=== PATIENT | female | born 1965 | race African-American/Black ===

== ENCOUNTER 2016-08-06 21:02 | Emergency (ER) | payer SELFPAY ==
--- NOTE | 2016-08-06 21:39 | RAD ---
FOUR VIEWS OF THE LEFT KNEE 08/06/16 COMPARISON: None. HISTORY: Left knee pain that started three to four hours ago. FINDINGS: Four views left knee shows a moderate medial femorotibial joint space narrowing and osteophyte forma tion and mild patellofemoral joint space narrowing and osteophyte formation consistent with osteoart hritis. There is no evidence of fracture or dislocation. No knee effusion is seen. IMPRESSION: Moderate left knee osteoarthritis without acute osseous abnormality. POS: JOSE
[2016-08-06] MEDS ORDERED: traMADol HCl 50 MG TAB ONE (21:45)
== END 2016-08-06 21:50 | disposition home or self-care (01) ==
LOC: BURERS 21:02
DX: M25.562 Pain in left knee (principal); F41.9 Anxiety disorder, unspecified; F32.9 Major depressive disorder, single episode, unspecified

== ENCOUNTER 2016-09-11 20:39 | Emergency (ER) | payer SELFPAY ==
[2016-09-11] MEDS ORDERED: AMOXicillin 250 MG CAP ONE (20:52)
[2016-09-11] MEDS ORDERED: traMADol HCl 50 MG TAB ONE (20:52)
== END 2016-09-11 20:57 | disposition home or self-care (01) ==
LOC: BURERS 20:39
DX: K02.9 Dental caries, unspecified (principal); F41.9 Anxiety disorder, unspecified; F32.9 Major depressive disorder, single episode, unspecified
CPT/HCPCS: 99282

== ENCOUNTER 2016-11-13 17:49 | Emergency (ER) | payer SELFPAY ==
[2016-11-13] MEDS ORDERED: Sulfameth/Trimethoprim DS 800-160mg TAB ONE (17:57)
== END 2016-11-13 18:00 | disposition home or self-care (01) ==
LOC: BURERS 17:49
DX: L02.411 Cutaneous abscess of right axilla (principal); F41.9 Anxiety disorder, unspecified; F32.9 Major depressive disorder, single episode, unspecified
CPT/HCPCS: 99283

== ENCOUNTER 2017-02-15 17:07 | Emergency (ER) | payer SELFPAY ==
[2017-02-15] MEDS ORDERED: Bacitracin Zinc 1 Packet ONE (17:25)
== END 2017-02-15 17:35 | disposition home or self-care (01) ==
LOC: BURERS 17:07
DX: L02.411 Cutaneous abscess of right axilla (principal); F41.9 Anxiety disorder, unspecified; F32.9 Major depressive disorder, single episode, unspecified
CPT/HCPCS: 99283; J7620

== ENCOUNTER 2017-03-25 10:03 | Emergency (ER) | payer SELFPAY | END 2017-03-25 10:21 | disposition home or self-care (01) | LOC: BURERS 10:03 | DX: K04.7 Periapical abscess without sinus (principal); F41.9 Anxiety disorder, unspecified; F32.9 Major depressive disorder, single episode, unspecified | CPT/HCPCS: 99282 ==

== ENCOUNTER 2017-04-18 18:41 | Emergency (ER) | payer SELFPAY ==
[2017-04-18] MEDS ORDERED: traMADol HCl 50 MG TAB ONE (19:04)
[2017-04-18] MEDS ORDERED: AMOXicillin 250 MG CAP ONE (19:05)
== END 2017-04-18 19:15 | disposition home or self-care (01) ==
LOC: BURERS 18:41
DX: K02.9 Dental caries, unspecified (principal); J06.9 Acute upper respiratory infection, unspecified; F41.9 Anxiety disorder, unspecified; F32.9 Major depressive disorder, single episode, unspecified
CPT/HCPCS: 99282

== ENCOUNTER 2017-08-12 08:40 | Emergency (ER) | payer SELFPAY ==
[2017-08-12] MEDS ORDERED: Ibuprofen 200 MG TAB ONE (09:23)
--- NOTE | 2017-08-12 10:34 | RAD ---
RIGHT ANKLE 3 VIEWS: Date: 08/12/17 PROVIDED CLINICAL HISTORY: Right ankle pain status post injury. FINDINGS: No evidence for fracture or other acute osseous abnormality. If there is persistent clinical concern, conservative management and follow-up imaging are advised. IMPRESSION: As above. POS: JOSE
== END 2017-08-12 09:33 | disposition home or self-care (01) ==
LOC: BURERS 08:40
DX: S93.431A Sprain of tibiofibular ligament of right ankle, initial encounter (principal); W17.89XA Other fall from one level to another, initial encounter
CPT/HCPCS: 29515

== ENCOUNTER 2017-11-08 17:05 | Emergency (ER) | payer SELFPAY ==
[2017-11-08] MEDS ORDERED: Ibuprofen 200 MG TAB ONE ×2 (17:15→17:17)
== END 2017-11-08 17:20 | disposition home or self-care (01) ==
LOC: BURERS 17:05
DX: M17.11 Unilateral primary osteoarthritis, right knee (principal)
CPT/HCPCS: 99283

== ENCOUNTER 2018-02-01 10:46 | Emergency (ER) | payer SELFPAY | END 2018-02-01 11:07 | disposition home or self-care (01) | LOC: BURERS 10:46 | DX: J06.9 Acute upper respiratory infection, unspecified (principal) | CPT/HCPCS: 99282 ==

== ENCOUNTER 2018-06-03 17:53 | Emergency (ER) | payer SELFPAY | END 2018-06-03 19:05 | disposition home or self-care (01) | LOC: BURERS 17:53 | DX: S93.402A Sprain of unspecified ligament of left ankle, initial encounter (principal); V49.9XXA Car occupant (driver) (passenger) injured in unspecified traffic accident, initial encounter | CPT/HCPCS: 99281 ==

== ENCOUNTER 2018-06-14 21:08 | Emergency (ER) | payer SELFPAY ==
[2018-06-14] MEDS ORDERED: Ondansetron ODT 4 MG TAB ONE (22:12)
[2018-06-14] MEDS ORDERED: Acetaminophen 325 MG TAB ONE (22:12)
[2018-06-14 22:30] LABS: #Basophils 0.2 thou/uL (0.0-0.2); #Eosinphils 0.1 thou/uL (0.0-0.7); #Lymphocytes 2.9 thou/uL (1.20-3.40); #Monocytes 0.5 thou/uL (0.11-0.59); #Neutrophils 3.6 thou/uL (1.40-6.50); %Basophils 2.1 % (0.0-1.0); %Eosinophils 1.5 % (0.0-10.0); %Lymphocytes 40.5 % (21.0-51.0); %Monocytes 6.4 % (0.0-10.0); %Neutrophils 49.6 % (42.0-75.0); Hemoglobin 11.9 g/dL (12.0-16.0); Mean Corpuscular HGB CONC 33.7 g/dL (32.0-36.0); Mean Corpuscular Hemoglobin 29.3 pg (27.0-31.0); Mean Platelet Volume 6.9 fL (7.4-10.4); Platelet Count 328 thou/uL (130-400); RBC Distribution Width 12.2 % (11.5-14.5); Red Blood Cell (RBC) Count 4.05 mill/uL (4.20-5.40); White Blood Cell (WBC) Count 7.2 thou/uL (4.8-10.8)
[2018-06-14 22:36] LABS: ALT (SGPT) Less than 7 U/L (8-55); AST (SGOT) 14 U/L (5-34); Albumin 3.8 g/dL (3.5-5.0); Alkaline Phosphatase 120 U/L (40-150); Anion Gap 16 mmol/L (10-20); BUN (Urea Nitrogen) 11 mg/dL (9.8-20.1); Bilirubin, Total 0.4 mg/dL (0.2-1.2); Calc. Creatinine Clearance 0 mL/min (70-130); Calcium 9.3 mg/dL (7.8-10.44); Carbon Dioxide 25 mmol/L (22-29); Chloride 105 mmol/L (98-107); Estimated GFR-MDRD 78; Globulin 3.1 g/dL (2.4-3.5); Glucose 87 mg/dL (70-105); Potassium 3.6 mmol/L (3.5-5.1); Protein, Total 6.9 g/dL (6.0-8.3); Sodium 142 mmol/L (136-145)
== END 2018-06-14 23:20 | disposition home or self-care (01) ==
LOC: BURERS 21:08
DX: K29.00 Acute gastritis without bleeding (principal); F41.9 Anxiety disorder, unspecified; K21.9 Gastro-esophageal reflux disease without esophagitis; I10 Essential (primary) hypertension
CPT/HCPCS: 36415; 80053; 84484; 85025; 93005; Q0162

== ENCOUNTER 2019-11-26 11:54 | Emergency (ER) | payer SELFPAY | END 2019-11-26 12:23 | disposition home or self-care (01) | LOC: BURERS 11:54 | DX: M54.12 Radiculopathy, cervical region (principal); I10 Essential (primary) hypertension | CPT/HCPCS: 99283 ==

== ENCOUNTER 2020-01-09 10:16 | Emergency (ER) | payer SELFPAY ==
[2020-01-09 10:57] LABS: Bilirubin Negative (Negative); Blood, Urine Negative (Negative); Clarity Cloudy (Clear); Glucose, Urine (Dipstick) Negative (Negative); Ketone, Urine Trace mg/dL (Negative); Leukocyte Small (Negative); Nitrite Negative (Negative); Protein, Urine (Dipstick) Negative (Neg-Trace); Specific Gravity, Urine 1.025 (1.005-1.030)
[2020-01-09 10:58] LABS: Pregnancy Test - Urine (BHCG) Negative (Negative); Pregu Control Background? CLEAR/WHITE (CLR/WHITE); Pregu Control Bar Appear? YES (CONTROL BAR); Specific Gravity 1.025 (1.002-1.036)
[2020-01-09 11:00] LABS: Bacteria/HPF 1+ HPF (None Seen); Mucous/LPF 1+ LPF (<2+); RBC/HPF 0-3 HPF (0-3); Squamous Epithelial 0-3 HPF (0-3)
== END 2020-01-09 11:14 | disposition home or self-care (01) ==
LOC: BURERS 10:16
DX: N39.0 Urinary tract infection, site not specified (principal); I10 Essential (primary) hypertension
CPT/HCPCS: 81003; 81015; 81025; 99284

== ENCOUNTER 2020-05-29 07:15 | Emergency (ER) | payer SELFPAY ==
[2020-05-29 16:44] LABS: SARS-CoV-2 MS2 Positive; SARS-CoV-2 N Gene Positive; SARS-CoV-2 S Gene Positive; SARS-CoV-2 by NAA DETECTED (NotDetected); SARS-CoV-2 orf1ab Positive
== END 2020-05-29 08:13 | disposition home or self-care (01) ==
LOC: BURERS 07:15
DX: U07.1 COVID-19 (principal); I10 Essential (primary) hypertension
CPT/HCPCS: 87635; 99283; U0003

== ENCOUNTER 2020-06-19 20:39 | Emergency (ER) | payer SELFPAY ==
[2020-06-21 05:43] LABS: SARS-CoV-2 PCR by NAA DETECTED (NotDetected)
== END 2020-06-19 21:10 | disposition home or self-care (01) ==
LOC: BURERS 20:39
DX: U07.1 COVID-19 (principal); I10 Essential (primary) hypertension
CPT/HCPCS: 87635; 99283; U0003; U0005

== ENCOUNTER 2020-11-16 08:24 | Emergency (ER) | payer SELFPAY ==
[2020-11-16] MEDS ORDERED: Bupivacaine 0.5% 10 ML VIAL ONE (09:18)
== END 2020-11-16 09:31 | disposition home or self-care (01) ==
LOC: BURERS 08:24
DX: K02.9 Dental caries, unspecified (principal); I10 Essential (primary) hypertension
CPT/HCPCS: 99281; J3490

== ENCOUNTER 2022-06-20 16:28 | Emergency (ER) | payer SELFPAY ==
[2022-06-20 20:01] LABS: Bilirubin Negative (Negative); Blood, Urine Negative (Negative); Clarity Slightly Cloudy (Clear); Glucose, Urine (Dipstick) Negative (Negative); Ketone, Urine Negative (Negative); Leukocyte Negative (Negative); Nitrite Negative (Negative); Protein, Urine (Dipstick) Negative (Neg-Trace); Specific Gravity, Urine 1.025 (1.005-1.030); Urobilinogen 0.2 mg/dL (Less than 2); pH, Urine 5.5 (5.0-9.0)
== END 2022-06-20 19:31 | disposition home or self-care (01) ==
LOC: BURERS 16:28
DX: K59.00 Constipation, unspecified (principal); I10 Essential (primary) hypertension
CPT/HCPCS: 74022; 81003